=== PATIENT | male | born 1935 | race Caucasian/White ===

== ENCOUNTER 2019-11-05 15:18 | Observation (INO) | payer MEDICARE, SELFPAY ==
[2019-11-05] VITALS (8 sets, daily range): BP systolic 112–134; BP diastolic 60–79; PULSE 88–99; RESP 17–20; TEMP 38.2–38.6; O2SAT 93–99; BMI 26.6
--- NOTE | ~2019-11-05 | XR_ITS ---
XR chest 1V portable 11/05/2019 16:15 Indication: Weakness. Shortness of breath. Procedure: AP portable chest Comparison: 09/29/2018 Findings: Cardiomegaly. There is chronic apical pleural thickening/scarring. There is chronic left ba silar infiltrates. Chronic blunting left lateral costophrenic recess. No edema or pneumothorax. Advan rosie osteoarthritis of the shoulders. Impression: 1: Extensive bilateral scarring of the lung apices and left lung base. Blunting left lateral costophr enic recess, likely pleural thickening versus chronic effusion. 2: Cardiomegaly. Reviewed, dictated and finalized at location A. Impression: 1: Extensive bilateral scarring of the lung apices and left lung base. Blunting left lateral costophrenic recess, likely pleural thickening versus chronic eff usion. 2: Cardiomegaly.
--- NOTE | ~2019-11-05 | CT_ITS ---
EXAMINATION: CT brain wo con DATE: 11/05/2019 16:27 INDICATION: Weakness. TECHNIQUE: Computed tomography (CT) of the head was performed without intravenous contrast. The dose- length product was 605.33 mGy-cm. The mA was adjusted according to patient size. Iterative reconstruc tion technique was employed. COMPARISON: None FINDINGS: Generalized atrophy. There are scattered mild periventricular and subcortical white matter changes, most likely related to small vessel ischemic disease (microangiopathy). No ventriculomegaly or midline shift. There is intracranial atherosclerosis. No acute intracranial hemorrhage, infarction , mass or mass effect. Paranasal sinuses and mastoids are pneumatized. No depressed skull fractures. IMPRESSION: 1. No acute intracranial abnormality. 2: Chronic age-related findings. Reviewed, dictated and finalized at location A.
--- NOTE | 2019-11-05 15:29 | ECG_ITS ---
Measurements Intervals [place] Rate: 103 P: 52 [place]: 172 QRS: -28 QRSD: 139 T: 83 QT: 348 QTc: 456 Interpretive Statements SINUS TACHYCARDIA LEFT BUNDLE BRANCH BLOCK BASELINE ARTIFACT- II, III, AVR, AVF ABNORMAL ECG Electronically Signed On 11-06-2019 16:15:53 CDT by Hal Lopez D.O.
[2019-11-05 15:52] LABS: Hematocrit 34.2 % (42.0-52.0); Hemoglobin 11.4 g/dL (14.0-18.0); Mean Corpuscular HGB Conc 33.3 g/dl (32-36); Mean Corpuscular Hemoglobin 33.9 pg (26-34); Mean Corpuscular Volume 101.8 fl (80-100); Mean Platelet Volume 11.4 fl (7.4-10.4); Platelet Count Result 48 k/mm3 (150-375); Red Blood Count 3.36 M/mm3 (4.6-6.20); Red Cell Distribution Width 15.4 % (11.5-14.5); White Blood Count 3.3 K/mm3 (4.5-10.0)
[2019-11-05 16:01] LABS: Alanine Aminotransferase 63 U/L (4-50); Albumin Level 3.7 g/dL (3.5-5.1); Alkaline Phosphatase 188 U/L (38-126); Anion Gap 13.6 mmol/L (7-16); Aspartate Amino Transferase 86 U/L (17-59); Bilirubin,Total 2.5 mg/dL (0.2-1.3); Blood Urea Nitrogen 14 mg/dL (9-20); Calcium 8.7 mg/dL (8.4-10.2); Carbon Dioxide 24 mmol/L (22-30); Chloride 98 mmol/L (98-107); Estimated CRCL calculation 47 ml/min; Estimated Glomerular Filt Rate > 60; Glucose 120 mg/dL (75-110); Potassium 3.6 mmol/L (3.4-5.0); Sodium 132 mmol/L (137-145)
--- NOTE | 2019-11-05 16:08 | ED.GENADULT ---
HPI - General Adult General Chief complaint: Weakness Stated complaint: INCRFEASED WEAKNESS Time Seen by Provider: 11/05/19 15:33 Source: patient, family and EMS Mode of arrival: wheelchair Limitations: no limitations History of Present Illness HPI narrative: Patient is an 83-year-old male with a history of myelodysplastic syndrome who presents for evaluation of fever, decreased oral intake and weakness. Patient states he has had subjective fevers over the past 48 hours, lack of appetite has decreased oral intake, and weakness. Patient states he feels diffusely weak, denies any focal numbness or weakness. No facial droop or dysarthria. Patient states he otherwise feels fine. Patient's has noticed decrease in ability to do activities of daily living. Patient typically uses a walker to help with ambulation, but has been unable to do transfers. Because he is wheelchair-bound herself, she is not able to help him. Patient denies any chest pain, cough, abdominal pain, urinary symptoms. No recent travel. Patient follows with Dr. Mac Aguilar at [facility] for his myelodysplastic syndrome. Related Data Allergies Allergy/AdvReac Type Severity Reaction Status Date / Time No Known Allergies Allergy Unverified 09/29/18 15:25 Review of Systems Review of Systems: Narrative: CONSTITUTIONAL: Reports subjective fever EYES: Denies visual changes, redness, or discharge. ENT: Denies rhinorrhea, congestion, sore throat, or otalgia. CARDIOVASCULAR: Denies chest pain, palpitations, or edema. RESPIRATORY: Denies cough or dyspnea. GASTROINTESTINAL: Denies abdominal pain, nausea, vomiting, or diarrhea. GENITOURINARY: Denies dysuria or hematuria. SKIN: Denies rash or itching. MUSCULOSKELETAL: Denies back pain, joint pain, or myalgia. NEUROLOGIC: Denies headache, reports feeling diffusely weak PMFSH Past Medical History Medical History (Updated 11/05/19 @ 20:36 by Anayeli Blas MD) Arthritis Diabetes Myelodysplastic syndrome Social History Social History (Updated 11/05/19 @ 16:17 by Anayeli Blas MD) Alcohol intake: never Substance use: never Living arrangements: with family Gender identity (if verbalized by the patient): Male Exam Narrative: Exam Narrative: GENERAL: Awake, alert, conversant HEAD: Normocephalic, atraumatic. EYES: PERRLA and EOMI. ENT: Nares clear, no rhinorrhea or epistaxis. Mucous membranes moist. NECK: Supple. CHEST: No respiratory distress, breathing even and non labored HEART: Regular rate, sinus rhythm ABDOMEN:Non distended, non tender EXTREMITIES: Normal range of motion. No edema. SKIN: Warm, dry, no rash. NEURO:No focal deficits. Alert and oriented x3. Finger to nose intact bilaterally. EOMs intact without nystagmus. No facial droop/asymmetry noted bilaterally. Grimace intact. Intact sensation in face. Hearing intact bilaterally. Shoulder shrug intact. Strength 5/5 bilateral upper extremities. Strength 5/5 bilateral lower extremities. Ambulatory exam deferred. Course Vital Signs Vital signs: Vital Signs Temperature 38.6 C H 11/05/19 15:24 Pulse Rate 98 11/05/19 15:24 Respiratory Rate 18 11/05/19 15:24 Blood Pressure 122/60 11/05/19 15:24 Pulse Oximetry 99 11/05/19 15:24 Temperature 38.6 C H 11/05/19 15:24 Pulse Rate 90 11/05/19 18:30 Respiratory Rate 20 11/05/19 18:30 Blood Pressure 125/67 11/05/19 18:30 Pulse Oximetry 93 11/05/19 18:30 Medical Decision Making MDM Narrative Medical decision making narrative: Patient initially presented for evaluation of fever, weakness. Initially denied any chest pain, then was concerned perhaps the patient had reported some, but patient continues to deny. EKG without acute ischemic changes. Patient with what appears to be stable myelodysplastic syndrome, not requiring any transfusion based on laboratory values at this time. No signs of active bleeding. Laboratory results reveal elevated troponin. Pt no
[2019-11-05 16:11] LABS: Add Urine Microscopic? YES; Appearance Urine Clear (Clear); Bilirubin Urine Negative (Negative); Blood Urine 1+ (Negative); Color Urine Amber (Yellow); Glucose Urine UA Negative (Negative); Ketones Urine Negative (Negative); Leukocyte Esterase Ur Negative LEU/UL (Negative); Mucus Urine Rare /lpf; Nitrate Urine Negative (Negative); Protein Urine Negative (Negative); Specific Grav Ur 1.017 (1.001-1.035); Squamous Epithelial Cell Urine Rare /hpf (Few); WBC Urine 0-3 /hpf
[2019-11-05 16:18] LABS: Band Neutrophils Percent 12 % (0-6); Lymphocytes Absolute Manual 0.79 K/mm3 (1.1-4.5); Monocytes Absolute Manual 0.06 K/mm3 (0.1-0.90); Monocytes Percent Manual 2 % (3-9); Neutrophils Absolute Manual 2.44 K/mm3 (1.3-6.7); Neutrophils Percent Manual 62 % (46-73); Platelet Estimate Decreased (Adequate); Total Cells Counted 50
[2019-11-05 16:19] LABS: Anisocytosis 1+ (NORMAL)
[2019-11-05 17:00] LABS: Lactic Acid Reflex 1.5 mmol/L (0.7-2.1)
--- NOTE | 2019-11-05 18:15 | PC.NURSE ---
erp at bedside for update/results reviewed with pt / at this time.
[2019-11-05 19:12] LABS: INR 1.2
[2019-11-05 19:13] LABS: Partial Thromboplastin Time 25.9 SECONDS (22.3-36.8)
[2019-11-05 20:03] LABS: Troponin I 0.043 ng/mL (0.000-0.034)
--- NOTE | 2019-11-05 20:55 | PM.IMHP ---
H&P: HPI History of Present Illness Chief complaint: Weakness, Fever, elevated troponin Narrative: This is an 83 year old male with known myelodysplastic syndrome who normally is seen at [facility] presented to our hospital with a complaint of feeling weak and tired over the past few days with decreased PO intake. His noticed that he also felt feverish last night but did not take his temperature. The patient denies any focal neurolgical symptoms and instead claims that he is just overall generally weak. He denies any sick contacts, headache, nausea, vomiting, chest pain, shortness of breath, cough, sore throat, abdominal pain, dysuria, hematuria, or diarrhea. He was evaluated in the ER today and found to incidentally have a mildly elevated troponin. ER provider has asked that we admit the patient to the hospital to trend his troponin. Cardiology has been consulted by ER provider. The patient was swabbed for COVID-19 in the ER. Review of Systems Review of Systems: All systems reviewed & are unremarkable except as noted in HPI and below PMFSH Past Medical History Medical History (Updated 11/05/19 @ 21:11 by Sandoval Warner MD) Arthritis Diabetes Myelodysplastic syndrome Surgical History Surgical History (Updated 11/05/19 @ 20:59 by Sandoval Warner MD) History of hernia surgery Social History Social History Smoking status: Never smoker Alcohol intake: never Substance use: never Living arrangements: with family Gender identity (if verbalized by the patient): Male Spiritual care concerns: No Meds Home Medications and Allergies Home Medications Medication Instructions Recorded Confirmed Type aspirin [Adult Low Dose Aspirin] 81 mg PO DAILY 11/05/19 11/05/19 History terazosin 10 mg PO DAILY 11/05/19 11/05/19 History vitamin B complex [B 1 tablet PO DAILY 11/05/19 11/05/19 History Complex-Vitamin B12] Allergies Allergy/AdvReac Type Severity Reaction Status Date / Time No Known Allergies Allergy Unverified 09/29/18 15:25 Vital Signs Vital Signs - 24 hr 11/05/19 15:24 11/05/19 15:36 11/05/19 18:30 Temperature 38.6 C H Pulse Rate 98 99 90 Respiratory Rate 18 20 Blood Pressure 122/60 125/67 Pulse Oximetry 99 93 11/05/19 20:25 Temperature 38.3 C H Pulse Rate 98 Respiratory Rate 17 Blood Pressure 117/79 Pulse Oximetry 97 Exam Const: General: cooperative, no acute distress, alert, awake and other (Febrile to touch++ +) Nutritional Appearance: well nourished Orientation/consciousness: patient oriented x3 HENMT: Head: normal to inspection General nose exam: Normal external nose present Face and sinus: normal facial exam Mouth: Yes oropharynx normal and Yes tongue abnormal (purpura under tongue+) Eyes: Pupils: Equal, round and reactive pupils present EOM: EOMs intact bilaterally Neck: Neck: supple and no JVD Thyroid: thyroid normal Lymphatic: lymphadenopathy not noted Resp: Effort & Inspection: normal respiratory effort Auscultation: clear to auscultation bilaterally Cardio: Rate: tachycardic Rhythm: regular rhythm Heart sounds: no murmurs GI: Inspection: normal to inspection Auscultation: normal bowel sounds Skin: General skin exam: other (Fine petechial rash noted on lower extremities b/l+ ) Neuro: General: patient oriented x3 Cranial nerves: Yes CN's II-XII intact bilaterally and Yes Equal, round and reactive pupils present Speech: normal speech Motor exam (neuro): 5/5 motor strength present throughout Sensory Exam: normal sensation Extrem: General: normal to inspection and no edema Psych: Mental Status: mental status grossly normal Affect: normal affect H&P: Results Labs Labs: Short CBC 11/05/19 Range/Units 15:43 WBC 3.3 L (4.5-10.0) K/mm3 Hgb 11.4 L (14.0-18.0) g/dL Hct 34.2 L (42.0-52.0) % Plt Count 48 L (150-375) k/mm3 [facility] 07
--- NOTE | 2019-11-05 21:37 | ADMIMU ---
This patient, Janak Keller, was admitted to IMU status, and placed in Intensive Care Unit-1. Patient/family oriented to hospital policies and general routines including ID bracelet, bed and alarms, visiting hours, pain management, procedures, bathroom and other care routines, personal items, smoking policy, room service/diet, and visiting hours. Valuables list has been completed. Information on how to activate the Rapid Response Team has been discussed. Patient/Family are encouraged to report perceived risks to care and to ask questions if they do not understand what they are told or what they should do.
[2019-11-05 22:29] LABS: Glucose Point of Care 102 (65-105)
[2019-11-05 23:57] LABS: Troponin I 0.042 ng/mL (0.000-0.034)
[2019-11-06] VITALS (11 sets, daily range): BP systolic 93–118; BP diastolic 58–62; PULSE 65–91; RESP 18–22; TEMP 36.4–38.2; O2SAT 95–97
[2019-11-06 03:31] LABS: Basophils Percent Auto 0.4 % (0.2-1.2); Eosinophils Percent Auto 0.4 % (0-4.4); Hematocrit 30.7 % (42.0-52.0); Hemoglobin 10.3 g/dL (14.0-18.0); Immature Granulocyte Absolute 0.02 K/mm3 (0.00-0.031); Immature Granulocyte Percent A 0.7 % (0-0.5); Immature Platelet Fraction Pct 3.9 % (0.9-11.2); Lymphocytes Percent Auto 14.2 % (18.3-44.2); Mean Corpuscular HGB Conc 33.6 g/dl (32-36); Mean Corpuscular Hemoglobin 33.9 pg (26-34); Mean Platelet Volume 11.6 fl (7.4-10.4); Monocytes Absolute Auto 0.3 K/mm3 (0.1-0.6); Neutrophils Absolute Auto 2.1 K/mm3 (1.3-6.7); Neutrophils Percent Auto 73.3 % (45.5-73.1); Platelet Count Result 42 k/mm3 (150-375); Red Blood Count 3.04 M/mm3 (4.6-6.20); Red Cell Distribution Width 15.3 % (11.5-14.5); White Blood Count 2.8 K/mm3 (4.5-10.0)
[2019-11-06 03:42] LABS: Anion Gap 9.6 mmol/L (7-16); Blood Urea Nitrogen 16 mg/dL (9-20); Calcium 8.2 mg/dL (8.4-10.2); Carbon Dioxide 25 mmol/L (22-30); Chloride 101 mmol/L (98-107); Estimated CRCL calculation 52 ml/min; Estimated Glomerular Filt Rate > 60; Glucose 129 mg/dL (75-110); Potassium 3.6 mmol/L (3.4-5.0); Sodium 132 mmol/L (137-145)
[2019-11-06 04:12] LABS: Troponin I 0.052 ng/mL (0.000-0.034)
[2019-11-06 08:54] LABS: Glucose Point of Care 100 (65-105)
--- NOTE | 2019-11-06 09:25 | PM.CNCAR ---
Assessment and Plan Additional Plan 83-year-old man whose has an elevation in his troponin undoubtedly related to chronic anemia and chronic renal insufficiency. He does not require any further evaluation of this since I am mentioned above he is known to have angiographically non diseased coronary arteries upon evaluation last year. Jose Maria Conley MD [facility] History of Present Illness History of Present Illness Consult date/time: Date of service:11/06/19 09:25 Reason For Visit: Weakness, Fever, elevated troponin Narrative: This is an 83-year-old man who I am seeing at the request of the hospitalist because of an elevation in troponin. The patient is known to me in the office and has a history of chronic left bundle branch block and angiographically non diseased coronary arteries. His principal medical problem is that of myelodysplastic syndrome and he was brought to the hospital by his last night because of significant fever. Patient describes being weak and febrile and he reports an oral temperature at home of over 104?. His physicians are down in [place] and [facility] but he came to [facility] with these problems. He denies any cardiac complaints such as chest pain pressure heaviness dyspnea diaphoresis nausea or vomiting. For reasons that are not explained in the chart troponin levels were done following admission which are just out of normal range and are flat. The remainder of his lab data demonstrates pancytopenia and chronic kidney disease. He was referred to see me originally back in March of 2018 because of symptoms of exertional dyspnea. The patient had a left bundle branch block and had an echocardiogram in the office that demonstrated left ventricular systolic function in the low-normal range. For this wheezing I was asked to perform an angiogram on this gentleman which was done in May of 2018. The exam demonstrated no evidence of coronary disease and ejection fraction of about 40% and following all of that he was found to have significant difficulty with a myelodysplastic syndrome. His oncologist that did takes care of him is not on staff at [facility]. because of the troponin abnormalities I have been asked to see him in consultation this morning. Because of the fever pancytopenia he is being ruled out for shepherd virus and as such is hospitalized in ICU room 1. Review of Systems Constitutional: Constitutional: Reports fatigue and Reports weakness Eyes: Eyes: Reports no additional eye complaints ENT: Reports system reviewed and no additional complaints, except as documented Cardiovascular: Cardiovascular: Reports no additional cardiovascular complaints Respiratory: Respiratory: Reports no additional respiratory complaints Gastrointestinal: Gastrointestinal: Reports no additional gastrointestinal complaints Musculoskeletal: Musculoskeletal: Reports myalgias Integumentary/Breasts: Skin/Breast: Reports system reviewed and no additional complaints, except as docu Neurologic: Reports system reviewed and no additional complaints, except as documented Psychiatric: Psychiatric: Reports no additional psychiatric complaints Endocrine: Endocrine: Reports no additional endocrine complaints Hematologic/Lymphatic: Hematologic/Lymphatic: Reports no additional hematologic/lymphatic complaints Allergic/Immunologic: Allergic/Immunologic: Reports no additional allergic/immunologic complaints [facility] Past Medical History Medical History (Updated 11/05/19 @ 21:11 by Sandoval Warner MD) Arthritis Diabetes Myelodysplastic syndrome Surgical History Surgical History (Updated 11/05/19 @ 20:59 by Sandoval Warner MD) History of hernia surgery Social History Social History Smoking status: Never smoker Alcohol intake: never Substance use: never Living arrangements: with family Gender identity (if verbalize
[2019-11-06] MEDS: TERAZOSIN HCL 5 MG CAPSULE 10 MG PO (10:21)
[2019-11-06] MEDS: ASPIRIN 81 MG ENTERIC TABLET PO (10:21)
[2019-11-06] MEDS: VITAMIN B COMPLEX CAPSULE 1 CAP PO (10:21)
[2019-11-06] MEDS: ACETAMINOPHEN 325 MG TABLET 650 MG PO (14:59)
[2019-11-06 16:17] LABS: Glucose Point of Care 114 (65-105)
[2019-11-06 16:17] LABS: Glucose Point of Care 134 (65-105)
--- NOTE | 2019-11-06 17:07 | PM.IMPN ---
Progress Note: A&P Assessment and Plan (1) Elevated troponin: Code(s): R79.89 - Other specified abnormal findings of blood chemistry Status: Acute Assessment and Plan: Admit for observation to IMU, telemetry, monitor for chest pain, trend troponin. Cardiology has been consulted by ER provider. Continue Cardiology recommendations. 11/06/19 17:07 patient 83-year-old male with history myelodysplastic syndrome presented emergency department with a complaint feverish tired and fatigued, difficulty with ambulation suspicion COVID-19 and being tested and isolated, patient has elevated tropes seen by cardiology team does not suspect acute coronary syndrome other stress from his current symptoms, chronic kidney disease and anemia no further workup is recommended. patient is isolation, currently patient is not require oxygen and no fever (2) Fever: Qualifiers: Fever type: due to other condition Qualified Code(s): R50.81 - Fever presenting with conditions classified elsewhere Code(s): R50.9 - Fever, unspecified Status: Acute Assessment and Plan: May be secondary to viral vs. myelodysplastic syndrome. Antipyretics as needed. (3) Weakness: Code(s): R53.1 - Weakness Status: Acute Assessment and Plan: May be secondary to myelodysplastic syndrome. PT/OT evaluation when appropriate. 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 (5) Myelodysplastic syndrome: Code(s): D46.9 - Myelodysplastic syndrome, unspecified Status: Chronic Assessment and Plan: Obtain heme-onc records from [facility]. The patient refused to be transferred to [facility]. Consider Oncology consult in am. 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 (7) Suspected 2019 novel coronavirus infection: Code(s): Z20.828 - Contact with and (suspected) exposure to other viral communicable diseases Status: Acute Assessment and Plan: The patient has been swabbed for COVID-19 in the ER tonight. COVID-19 results pending. Droplet isolation. Continus supportive care. Subjective Date/time seen: 11/06/19 17:07 patient 83-year-old male with history myelodysplastic syndrome presented emergency department with a complaint feverish tired and fatigued, difficulty with ambulation suspicion COVID-19 and being tested and isolated, patient has elevated tropes seen by cardiology team does not suspect acute coronary syndrome other stress from his current symptoms, chronic kidney disease and anemia no further workup is recommended. patient is isolation, currently patient is not require oxygen and no fever Review of Systems Review of Systems: ROS unobtainable: Yes unobtainable due to medical condition Exam Narrative: Exam Narrative: elderly frail, patient is seen but not examinedm temperature is 99?, pulse is 85 respiratory 22 pulse ox is 96% at room, blood pressure is 98/50 Const: General: comfortable and no acute distress HENMT: General nose exam: Normal nares present Eyes: Sclera: sclerae normal Neck: Other: no retraction Resp: Effort & Inspection: normal respiratory effort GI: Other: not distant Skin: General skin exam: normal color Extrem: General: normal to inspection Psych: Affect: Anxious affect present Objective Data Vital Signs Vital Signs: Vital Signs - 24 hr 11/05/19 18:30 11/05/19 20:25 11/05/19 21:30 Temperature 100.9 F
[2019-11-06 20:35] LABS: Glucose Point of Care 135 (65-105)
[2019-11-06 20:42] LABS: SARS-CoV-2 RNA PCR Negative
--- NOTE | 2019-11-06 22:35 | PC.NURSE ---
This patient, Janak Keller, was transferred to [facility] on 11/06/19 at 2220. Personal belongings sent with patient. Belongings list checked and signed with receiving. Report given to KENJI Graham. Appropriate documentation sent with patient.
--- NOTE | 2019-11-06 22:45 | PC.NURSE ---
This patient, Janak Keller, was received from ICU-1 on 11/06/19 at 2235 via bed. Report received from Tosha Gill RN. Personal belongings list checked and signed. Patient oriented to unit policies and routines.
[2019-11-07] VITALS (14 sets, daily range): BP systolic 98–121; BP diastolic 48–63; PULSE 71–113; RESP 16–20; TEMP 35.9–37.5; O2SAT 94–97
[2019-11-07 08:11] LABS: Glucose Point of Care 99 (65-105)
[2019-11-07] MEDS: TERAZOSIN HCL 5 MG CAPSULE 10 MG PO (08:39)
[2019-11-07] MEDS: ASPIRIN 81 MG ENTERIC TABLET PO (08:39)
[2019-11-07] MEDS: VITAMIN B COMPLEX CAPSULE 1 CAP PO (08:39)
[2019-11-07 09:43] LABS: Hematocrit 30.8 % (42.0-52.0); Hemoglobin 10.2 g/dL (14.0-18.0); Mean Corpuscular HGB Conc 33.1 g/dl (32-36); Mean Corpuscular Hemoglobin 33.6 pg (26-34); Mean Corpuscular Volume 101.3 fl (80-100); Mean Platelet Volume 12.5 fl (7.4-10.4); Platelet Count Result 38 k/mm3 (150-375); Red Blood Count 3.04 M/mm3 (4.6-6.20); Red Cell Distribution Width 15.3 % (11.5-14.5); White Blood Count 3.1 K/mm3 (4.5-10.0)
[2019-11-07 09:53] LABS: Anion Gap 11.7 mmol/L (7-16); Blood Urea Nitrogen 19 mg/dL (9-20); Calcium 8.3 mg/dL (8.4-10.2); Carbon Dioxide 24 mmol/L (22-30); Chloride 103 mmol/L (98-107); Estimated CRCL calculation 52 ml/min; Estimated Glomerular Filt Rate > 60; Glucose 128 mg/dL (75-110); Potassium 3.7 mmol/L (3.4-5.0); Sodium 135 mmol/L (137-145)
[2019-11-07 12:19] LABS: Glucose Point of Care 105 (65-105)
[2019-11-07] MEDS: ACETAMINOPHEN 325 MG TABLET 650 MG PO ×2 (13:30→19:18)
--- NOTE | 2019-11-07 13:52 | PM.IMPN ---
Progress Note: A&P Assessment and Plan (1) Elevated troponin: Code(s): R79.89 - Other specified abnormal findings of blood chemistry Status: Acute Assessment and Plan: Admit for observation to IMU, telemetry, monitor for chest pain, trend troponin. Cardiology has been consulted by ER provider. Continue Cardiology recommendations. 11/07/19 13:52 patient 83-year-old male with history myelodysplastic syndrome presented emergency department with a complaint feverish tired and fatigued, difficulty with ambulation suspicion COVID-19 and was tested and isolated, patient COVID test is negative and out of isolation, patient has elevated tropes was seen by cardiology team does not suspect acute coronary syndrome other stress from his current symptoms, chronic kidney disease and anemia no further workup is recommended. today patient states feeling better not a short of breath as when he arrived, denies any chest pain shortness of breath bleeding or bruising, his is present in the room, patient with myelodysplastic syndrome, his hemoglobin today is 10.2 and platelets are 38 which is baseline has no complaints of bleeding or bruising, currently patient is not require oxygen and no fever, will have a PT OT evaluate the patient patient will benefit from acute rehab. (2) Fever: Qualifiers: Fever type: due to other condition Qualified Code(s): R50.81 - Fever presenting with conditions classified elsewhere Code(s): R50.9 - Fever, unspecified Status: Acute Assessment and Plan: May be secondary to viral vs. myelodysplastic syndrome. Antipyretics as needed. (3) Weakness: Code(s): R53.1 - Weakness Status: Acute Assessment and Plan: May be secondary to myelodysplastic syndrome. PT/OT evaluation when appropriate. 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 (5) Myelodysplastic syndrome: Code(s): D46.9 - Myelodysplastic syndrome, unspecified Status: Chronic Assessment and Plan: Obtain heme-onc records from [facility]. The patient refused to be transferred to [facility]. Consider Oncology consult in am. (6) Diabetes: Qualifiers: Diabetes mellitus complication status: without complication Diabetes mellitus intermission coordinator insulin use: without intermission coordinator use Diabetes mellitus type: type 2 Qualified Code(s): E11.9 - Type 2 diabetes mellitus without complications Code(s): E11.9 - Type 2 diabetes mellitus without complications Status: Chronic Assessment and Plan: Accuchecks, SSI Coverage, Hypoglycemic protocol. (7) Suspected 2019 novel coronavirus infection: Code(s): Z20.828 - Contact with and (suspected) exposure to other viral communicable diseases Status: Acute Assessment and Plan: The patient has been swabbed for COVID-19 in the ER [facility]. COVID-19 results pending. Droplet isolation. Continus supportive care. Subjective Date/time seen: 11/07/19 13:52 patient 83-year-old male with history myelodysplastic syndrome presented emergency department with a complaint feverish tired and fatigued, difficulty with ambulation suspicion COVID-19 and was tested and isolated, patient COVID test is negative and out of isolation, patient has elevated tropes was seen by cardiology team does not suspect acute coronary syndrome other stress from his current symptoms, chronic kidney disease and anemia no further workup is recommended. today patient states feeling better not a short of breath as when he arrived, denies any chest pain shortness of breath bleeding or bruising, his is present in the room, patient with myelodysplastic syndrome, his hemoglobin today is 10.2 and platelets are 38 which is baseline has no complaints of bleeding or bruising, currently patient is not require oxyg
[2019-11-07 16:33] LABS: Glucose Point of Care 116 (65-105)
--- NOTE | 2019-11-07 17:15 | PC.NURSE ---
This patient, Janak Keller, was transferred to [250] on 11/07/19 at 1715. Personal belongings sent with patient. Belongings list checked and signed with receiving [ ]. Report given to [DIPIKA PHILLIP]. Appropriate documentation sent with patient.
--- NOTE | 2019-11-07 17:25 | PC.NURSE ---
This patient, Janak Keller, was received from IMU 200/01 on 11/07/19 at 1725. Personal belongings list checked and signed. Patient/family oriented to unit policies and routines
[2019-11-07 21:09] LABS: Glucose Point of Care 124 (65-105)
[2019-11-08 05:08] LABS: Hematocrit 30.5 % (42.0-52.0); Hemoglobin 10.2 g/dL (14.0-18.0); Immature Platelet Fraction Pct 6.9 % (0.9-11.2); Mean Corpuscular HGB Conc 33.4 g/dl (32-36); Mean Corpuscular Volume 101.7 fl (80-100); Mean Platelet Volume 11.4 fl (7.4-10.4); Platelet Count Result 43 k/mm3 (150-375); Red Cell Distribution Width 15.3 % (11.5-14.5); White Blood Count 3.2 K/mm3 (4.5-10.0)
[2019-11-08 05:40] LABS: Anion Gap 9.3 mmol/L (7-16); Blood Urea Nitrogen 16 mg/dL (9-20); Calcium 8.3 mg/dL (8.4-10.2); Carbon Dioxide 27 mmol/L (22-30); Chloride 103 mmol/L (98-107); Estimated CRCL calculation 52 ml/min; Estimated Glomerular Filt Rate > 60; Glucose 115 mg/dL (75-110); Potassium 3.3 mmol/L (3.4-5.0); Sodium 136 mmol/L (137-145)
[2019-11-08 05:46] VITALS: BP 105/56; PULSE 65; RESP 16; TEMP 36.5; O2SAT 96
[2019-11-08 07:54] LABS: Glucose Point of Care 114 (65-105)
[2019-11-08] MEDS: VITAMIN B COMPLEX CAPSULE 1 CAP PO (09:49)
[2019-11-08] MEDS: TERAZOSIN HCL 5 MG CAPSULE 10 MG PO (09:49)
[2019-11-08] MEDS: POTASSIUM CHLORIDE 20 MEQ PACKET (FOR LIQUID) 40 MEQ PO (09:49)
[2019-11-08] MEDS: ASPIRIN 81 MG ENTERIC TABLET PO (09:49)
--- NOTE | 2019-11-08 10:57 | PM.IMPN ---
Progress Note: A&P Assessment and Plan (1) Elevated troponin: Code(s): R79.89 - Other specified abnormal findings of blood chemistry Status: Acute Assessment and Plan: Admit for observation to IMU, telemetry, monitor for chest pain, trend troponin. Cardiology has been consulted by ER provider. Continue Cardiology recommendations. 11/08/19 10:57 patient 83-year-old male with history myelodysplastic syndrome presented emergency department with a complaint feverish tired and fatigued, difficulty with ambulation suspicion COVID-19 and was tested and isolated, patient COVID test is negative and out of isolation, patient has elevated tropes was seen by cardiology team does not suspect acute coronary syndrome other stress from his current symptoms, chronic kidney disease and anemia no further workup is recommended. today patient states feeling better not a short of breath as when he arrived, denies any chest pain shortness of breath bleeding or bruising, his is present in the room, patient with myelodysplastic syndrome, his hemoglobin today is still 10.2 and platelets are 42 which his baseline has no complaints of bleeding or bruising, currently patient is not require any oxygen and no fever, will have a PT OT evaluate the patient patient will benefit from acute rehab. if remains clinically stable will discharge the patient home tomorrow. (2) Fever: Qualifiers: Fever type: due to other condition Qualified Code(s): R50.81 - Fever presenting with conditions classified elsewhere Code(s): R50.9 - Fever, unspecified Status: Acute Assessment and Plan: May be secondary to viral vs. myelodysplastic syndrome. Antipyretics as needed. (3) Weakness: Code(s): R53.1 - Weakness Status: Acute Assessment and Plan: May be secondary to myelodysplastic syndrome. PT/OT evaluation when appropriate. 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 (5) Myelodysplastic syndrome: Code(s): D46.9 - Myelodysplastic syndrome, unspecified Status: Chronic Assessment and Plan: Obtain heme-onc records from [facility]. The patient refused to be transferred to [facility]. Consider Oncology consult in am. (6) Diabetes: Qualifiers: Diabetes mellitus type: type 2 Diabetes mellitus terminal worker insulin use: without residential use Diabetes mellitus complication status: without complication Qualified Code(s): E11.9 - Type 2 diabetes mellitus without complications Code(s): E11.9 - Type 2 diabetes mellitus without complications Status: Chronic Assessment and Plan: Accuchecks, SSI Coverage, Hypoglycemic protocol. (7) Suspected 2019 novel coronavirus infection: Code(s): Z20.828 - Contact with and (suspected) exposure to other viral communicable diseases Status: Acute Assessment and Plan: The patient has been [facility]. COVID-19 results pending. Droplet isolation. Continus supportive care. Subjective Date/time seen: 11/08/19 10:57 patient 83-year-old male with history myelodysplastic syndrome presented emergency department with a complaint feverish tired and fatigued, difficulty with ambulation suspicion COVID-19 and was tested and isolated, patient COVID test is negative and out of isolation, patient has elevated tropes was seen by cardiology team does not suspect acute coronary syndrome other stress from his current symptoms, chronic kidney disease and anemia no further workup is recommended. today patient states feeling better not a short of breath as when he arrived, denies any chest pain shortness of breath bleeding or bruising, his is present in the room, patient with myelodysplastic syndrome, his hemoglobin today is still 10.2 and platelets are 42 which his bas
[2019-11-08 11:48] LABS: Glucose Point of Care 135 (65-105)
[2019-11-08 13:22] VITALS: BP 108/56; PULSE 77; RESP 20; TEMP 36.5; O2SAT 99
[2019-11-08 17:59] LABS: Glucose Point of Care 126 (65-105)
[2019-11-08 21:39] LABS: Glucose Point of Care 122 (65-105)
[2019-11-08 22:00] VITALS: BP 103/57; PULSE 81; RESP 18; TEMP 36.9; O2SAT 96
[2019-11-09 05:32] LABS: Hematocrit 29.8 % (42.0-52.0); Hemoglobin 9.8 g/dL (14.0-18.0); Immature Platelet Fraction Pct 5.8 % (0.9-11.2); Mean Corpuscular HGB Conc 32.9 g/dl (32-36); Mean Corpuscular Hemoglobin 33.6 pg (26-34); Mean Corpuscular Volume 102.1 fl (80-100); Mean Platelet Volume 11.7 fl (7.4-10.4); Platelet Count Result 47 k/mm3 (150-375); Red Blood Count 2.92 M/mm3 (4.6-6.20); Red Cell Distribution Width 15.3 % (11.5-14.5); White Blood Count 3.7 K/mm3 (4.5-10.0)
[2019-11-09 05:44] LABS: Anion Gap 7.8 mmol/L (7-16); Blood Urea Nitrogen 17 mg/dL (9-20); Calcium 8.2 mg/dL (8.4-10.2); Carbon Dioxide 26 mmol/L (22-30); Chloride 104 mmol/L (98-107); Estimated CRCL calculation 58 ml/min; Estimated Glomerular Filt Rate > 60; Glucose 106 mg/dL (75-110); Potassium 3.8 mmol/L (3.4-5.0); Sodium 134 mmol/L (137-145)
[2019-11-09 06:00] VITALS: BP 110/52; PULSE 77; RESP 20; TEMP 36.3; O2SAT 98
[2019-11-09 07:54] LABS: Glucose Point of Care 98 (65-105)
[2019-11-09] MEDS: VITAMIN B COMPLEX CAPSULE 1 CAP PO (08:22)
[2019-11-09] MEDS: ASPIRIN 81 MG ENTERIC TABLET PO (08:22)
[2019-11-09] MEDS: TERAZOSIN HCL 5 MG CAPSULE 10 MG PO (08:22)
--- NOTE | 2019-11-09 11:12 | PM.DS ---
DS: Admitting Diagnosis Admitting Diagnosis Admitting Diagnosis: Other specified abnormal findings of blood chemistry DS: Discharge Diagnosis Discharge Diagnosis (1) Elevated troponin: Code(s): R79.89 - Other specified abnormal findings of blood chemistry Status: Acute Assessment and Plan: Admit for observation to IMU, telemetry, monitor for chest pain, trend troponin. Cardiology has been consulted by ER provider. Continue Cardiology recommendations. 11/08/19 10:57 patient 83-year-old male with history myelodysplastic syndrome presented emergency department with a complaint feverish tired and fatigued, difficulty with ambulation suspicion COVID-19 and was tested and isolated, patient COVID test is negative and out of isolation, patient has elevated tropes was seen by cardiology team does not suspect acute coronary syndrome other stress from his current symptoms, chronic kidney disease and anemia no further workup is recommended. today patient states feeling better not a short of breath as when he arrived, denies any chest pain shortness of breath bleeding or bruising, his is present in the room, patient with myelodysplastic syndrome, his hemoglobin today is still 10.2 and platelets are 42 which his baseline has no complaints of bleeding or bruising, currently patient is not require any oxygen and no fever, will have a PT OT evaluate the patient patient will benefit from acute rehab. if remains clinically stable will discharge the patient home tomorrow. (2) Fever: Qualifiers: Fever type: due to other condition Qualified Code(s): R50.81 - Fever presenting with conditions classified elsewhere Code(s): R50.9 - Fever, unspecified Status: Acute Assessment and Plan: May be secondary to viral vs. myelodysplastic syndrome. Antipyretics as needed. (3) Weakness: Code(s): R53.1 - Weakness Status: Acute Assessment and Plan: May be secondary to myelodysplastic syndrome. PT/OT evaluation when appropriate. 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 (5) Myelodysplastic syndrome: Code(s): D46.9 - Myelodysplastic syndrome, unspecified Status: Chronic Assessment and Plan: Obtain heme-onc records from [facility]. The patient refused to be transferred to [facility]. Consider Oncology consult in am. (6) Diabetes: Qualifiers: Diabetes mellitus type: type 2 Diabetes mellitus halfway insulin use: without adjunct faculty for medical terminology use Diabetes mellitus complication status: without complication Qualified Code(s): E11.9 - Type 2 diabetes mellitus without complications Code(s): E11.9 - Type 2 diabetes mellitus without complications Status: Chronic Assessment and Plan: Accuchecks, SSI Coverage, Hypoglycemic protocol. (7) Suspected 2019 novel coronavirus infection: Code(s): Z20.828 - Contact with and (suspected) exposure to other viral communicable diseases Status: Acute Assessment and Plan: The patient has been swabbed for COVID-19 in the ER [facility]. COVID-19 results pending. Droplet isolation. Continus supportive care. DS: Summary Hospital Course Reason for hospitalization: Chief complaint: Weakness, Fever, elevated troponin Narrative: This is an 83 year old male with known myelodysplastic syndrome who normally is seen at [facility] presented to our hospital with a complaint of feeling weak and tired over the past few days with decreased PO intake. His noticed that he also felt feverish last night but did not take his temperature. The patient denies any focal neurolgical symptoms and instead claims that he is just overall generally weak. He denies any sick contacts, headache, nausea, vomiting, chest pain, shortness of breath, cough, sore throat, abd
[2019-11-09 11:44] LABS: Glucose Point of Care 114 (65-105)
== END 2019-11-09 12:30 | disposition home or self-care (01) ==
LOC: ANHED 20:36 → ANHICU 22:54 → ANH2MED 11-09 11:12 → ANHICU 11-12 09:30 → ANHIMU 11-12 09:30
PROVIDERS: Emergency Medicine; Admitting Provider Family Medicine; Emergency Provider Emergency Medicine; PCP Internal Medicine; Visit Provider Family Medicine
DX: R79.89 Other specified abnormal findings of blood chemistry (principal); Z20.828 Contact with and (suspected) exposure to other viral communicable diseases; R53.1 Weakness; R50.81 Fever presenting with conditions classified elsewhere; D61.818 Other pancytopenia; D46.9 Myelodysplastic syndrome, unspecified; E11.9 Type 2 diabetes mellitus without complications; N28.9 Disorder of kidney and ureter, unspecified
CPT/HCPCS: 36415; 70450; 71045; 80048; 80053; 81001; 83605; 84484; 85025; 85027; 85055; 85610; 85730; 87040; 87635; 93005; 97161; 97165; 99285; A9270; C9803; G0378; U0003